=== PATIENT | female | born 1940 | race Caucasian/White ===

== ENCOUNTER 2019-06-24 09:41 | Emergency (ER) | payer MEDICARE, SELFPAY ==
[2019-06-24] VITALS (7 sets, daily range): BP systolic 135–165; BP diastolic 69–94; PULSE 60–61; RESP 14–28; TEMP 36.8; O2SAT 97–100
--- NOTE | ~2019-06-24 | XR_ITS ---
EXAMINATION: XR chest 2V DATE: 06/24/2019 10:18 INDICATION: Bilateral chest pain. TECHNIQUE: Frontal and lateral views of the chest were obtained. COMPARISON: Chest 2 views 02/25/2019, 12/30/2012 FINDINGS: There are interstitial opacities in the mid and lower lung zones, consistent with mild pulm onary edema. No pleural effusion or pneumothorax. Cardiomegaly is noted. There is a left chest pacer with single lead in right ventricle. There is an old healed fracture of left fifth rib. IMPRESSION: 1. Mild pulmonary edema. 2. Cardiomegaly. Reviewed, dictated and finalized at location A. RWAY TRAFFIC CHECKER
--- NOTE | 2019-06-24 09:45 | ED.CHESTPAIN ---
HPI - Chest Pain General Chief Complaint: Chest Pain Stated Complaint: chest pain Time Seen by Provider: 06/24/19 09:45 Source: patient Limitations: no limitations History of Present Illness HPI narrative: Patient arrives with complaint of chest pain. Seems to be more in her lower chest and in her upper abdomen. Says it hurts when she takes deep breath. Does have some pain goes up to her left shoulder. Happened during rest. She denies any other nausea vomiting diaphoresis. She has a history of pacemaker placement and coronary artery disease status post stent placement. 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 MD complaint: chest heaviness Pertinent past history: coronary artery disease Onset (ago): hour(s) (1) Timing of current episode: constant Prior episodes: Yes Onset: during rest Pain location: epigastric Pain radiation: left arm Severity: moderate (9) Quality: heaviness Relieving factors: nothing Exacerbating factors: nothing Treatment prior to arrival: none Risk Factors Coronary artery disease risk factors: hyperlipidemia and hypertension Related Data Home Medications Medication Instructions Recorded Confirmed albuterol sulfate 2 inh INHALATION Q4-6H PRN 06/24/19 06/24/19 aspirin 81 mg PO DAILY 06/24/19 06/24/19 atorvastatin 80 mg PO HS 06/24/19 06/24/19 carvedilol 6.25 mg PO DAILY 06/24/19 06/24/19 cholecalciferol (vitamin D3) 50 mcg PO DAILY 06/24/19 06/24/19 [Vitamin D3] ferrous sulfate [Slow Fe] 142 mg PO BID 06/24/19 06/24/19 fluocinonide 1 applic TOPICAL BID 06/24/19 06/24/19 fluticasone propion-salmeterol 1 puff INHALATION BID 06/24/19 06/24/19 losartan 100 mg PO DAILY 06/24/19 06/24/19 spironolactone 25 mg PO DAILY 06/24/19 06/24/19 vitamin E10-oixca acid 1 tablet PO DAILY 06/24/19 06/24/19 warfarin 5 mg PO 4XW 06/24/19 06/24/19 warfarin 7 mg PO QMWF 06/24/19 06/24/19 Allergies Allergy/AdvReac Type Severity Reaction Status Date / Time amlodipine Allergy Swelling Verified 06/24/19 10:15 benzonatate Allergy Dizziness Verified 06/24/19 10:15 Iodinated Contrast Media Allergy Hives Verified 06/24/19 10:15 Penicillins Allergy Unknown Verified 06/24/19 10:15 Sulfa (Sulfonamide Allergy Unknown Verified 06/24/19 10:15 Antibiotics) Review of Systems Constitutional: Constitutional: Denies chills and Denies fever(s) Eyes: Eyes: Reports no additional eye complaints ENT: Reports system reviewed and no additional complaints, except as documented Cardiovascular: Cardiovascular: Denies rapid heart rate Respiratory: Respiratory: Denies chest congestion, Denies cough, Denies dyspnea and Denies wheezing Gastrointestinal: Gastrointestinal: Denies nausea and Denies vomiting Musculoskeletal: Musculoskeletal: Reports no additional musculoskeletal complaints Endocrine: Endocrine: Reports no additional endocrine complaints Hematologic/Lymphatic: Hematologic/Lymphatic: Reports no additional hematologic/lymphatic complaints REPLACED BY [facility] Past Medical History Medical History (Updated 06/24/19 @ 13:22 by Sd Negron MD) Coronary artery disease Hyperlipemia Hypertension Pacemaker Surgical History Surgical History (Updated 06/24/19 @ 13:20 by Sd Negron MD) History of hysterectomy History of tonsillectomy Stented coronary artery Social History Social History (Updated 06/24/19 @ 13:23 by Sd Negron MD) Smoking status: Never smoker Alcohol intake: never Substance use: never Exam Const: General: no acute distress and alert Nutritional Appearance: well nourished Orientation/consciousness: patient oriented x3 HENMT: Head: normal to inspection Ears: external ears normal Face and sinus: normal facial exam Mouth: Yes moist mucous membranes Eyes: Conjunctivae: conjunctivae normal Pupils: Equal, round and reactive pupils present EOM: EOMs intact bilaterally Neck: Neck: normal visual inspection and no lymphadenopathy Chest: Chest palpation & inspection: normal insp
--- NOTE | 2019-06-24 09:53 | ECG_ITS ---
Measurements Intervals [place] Rate: 60 P: ND: 0 QRS: 107 QRSD: 174 T: -59 QT: 449 QTc: 449 Interpretive Statements ELECTRONIC VENTRICULAR PACEMAKER BASELINE ARTIFACT- I, II, III NO FURTHER INTERPRETATION IS POSSIBLE ATYPICAL ECG Electronically Signed On 06-24-2019 11:05:38 TESTER ROCKET ENGINE by Ghulam Douglas D.O.
[2019-06-24] MEDS: ASPIRIN 81 MG CHEWABLE TABLET 324 MG PO (09:57)
[2019-06-24 10:06] LABS: Basophils Absolute Auto 0.03 K/mm3 (0.00-0.10); Basophils Percent Auto 0.4 % (0.0-1.0); Hematocrit 28.5 % (35.0-42.0); Hemoglobin 9.3 g/dL (11.7-13.8); Immature Granulocyte Absolute 0.03 K/mm3 (0.00-0.00); Immature Granulocyte Percent A 0.4 % (0.0-0.0); Lymphocytes Absolute Auto 0.66 K/mm3 (1.10-4.50); Lymphocytes Percent Auto 9.9 % (18.0-42.0); Mean Corpuscular HGB Conc 32.6 g/dL (32.0-36.0); Mean Corpuscular Hemoglobin 29.4 pg (27.0-31.0); Mean Corpuscular Volume 90.2 fL (78.0-102.0); Mean Platelet Volume 9.1 fl (9.2-11.8); Monocytes Absolute Auto 0.51 K/mm3 (0.10-0.90); Monocytes Percent Auto 7.6 % (2.0-11.0); Neutrophils Absolute Auto 5.5 K/mm3 (1.7-7.2); Neutrophils Percent Auto 81.7 % (50.0-70.0); Platelet Count Result 146 K/mm3 (150-420); Red Blood Count 3.16 M/mm3 (4.20-5.40); Red Cell Distribution Width 12.9 % (11.6-14.4); White Blood Count 6.7 K/mm3 (4.8-10.8)
[2019-06-24 10:27] LABS: INR 3.1; Prothrombin Time 30.8 Seconds (9.64-11.0)
[2019-06-24 10:27] LABS: Alanine Aminotransferase 55 U/L (14-59); Albumin Level 3.5 g/dL (3.4-5.0); Alkaline Phosphatase 224 U/L (46-116); Anion Gap 12.4 mmol/L (7-16); Aspartate Amino Transferase 39 U/L (15-37); Bilirubin,Total 0.8 mg/dL (0.00-1.00); Blood Urea Nitrogen 22 mg/dL (7-18); Calcium 9.3 mg/dL (8.5-10.1); Carbon Dioxide 25 mmol/L (21-32); Chloride 100 mmol/L (98-108); Estimated CRCL calculation 33 ml/min; Estimated Glomerular Filt Rate 53; Glucose 117 mg/dL (70-99); Osmolality Calculated 280 mOsm/kg (285-295); Potassium 4.4 mmol/L (3.5-5.1); Sodium 133 mmol/L (136-145); Total Protein 6.9 g/dL (6.4-8.2)
[2019-06-24 10:30] LABS: D Dimer 0.53 mg/L (0.19-0.50)
[2019-06-24 10:40] LABS: Troponin I < 0.02 ng/mL (0.00-0.056)
[2019-06-24] MEDS: HYDROMORPHONE HCL 2 MG/ML VIAL 1 MG IV PUSH (10:41)
[2019-06-24] MEDS: NITROGLYCERIN SL 0.4 MG TABLET SUBLINGUAL (10:41)
--- NOTE | 2019-06-24 11:23 | PC.NURSE ---
Report to ALFREDO Nelson
--- NOTE | 2019-06-24 11:29 | PC.NURSE ---
Pt requesting [facility] for transport. [facility] contacted.
--- NOTE | 2019-06-24 12:13 | PC.NURSE ---
erp on phone with dr cosby at [facility] discussing plan of care.
--- NOTE | 2019-06-24 13:08 | PC.NURSE ---
room assignment obtained, pt to go to room 1306U at [facility].
--- NOTE | 2019-06-24 13:22 | PC.NURSE ---
RN unavailable to take report. Pt aware of room assignment.
--- NOTE | 2019-06-24 14:12 | PC.NURSE ---
Report to Dahiana at [facility]. [facility] has no als truck for transfer. [facility] contacted, will check and call back.
== END 2019-06-24 14:46 | disposition short-term general hospital (02) ==
PROVIDERS: Emergency Provider Emergency Medicine
DX: R07.1 Chest pain on breathing (principal); I25.10 Atherosclerotic heart disease of native coronary artery without angina pectoris; E78.5 Hyperlipidemia, unspecified; I10 Essential (primary) hypertension
CPT/HCPCS: 36415; 71046; 80053; 84484; 85025; 85380; 85610; 93005; 96374; 96375; 99284; 99285; A9270; J1170; J3010

== ENCOUNTER 2019-11-01 12:36 | Outpatient (RCR) | payer MEDICARE, SELFPAY ==
[2019-08-24 16:07] LABS: INR 3.1; Prothrombin Time 30.5 Seconds (9.64-11.0)
[2019-10-06 12:46] LABS: INR 3.6; Prothrombin Time 35.7 Seconds (9.64-11.0)
[2019-11-01 13:26] LABS: INR 3.4; Prothrombin Time 33.9 Seconds (9.64-11.0)
== END 2019-11-22 23:59 | disposition home or self-care (01) ==
LOC: CHSLAB 12:36
PROVIDERS: Internal Medicine; PCP Internal Medicine
DX: Z79.01 Long term (current) use of anticoagulants (principal); I48.20 Chronic atrial fibrillation, unspecified
CPT/HCPCS: 36415; 85610

== ENCOUNTER 2020-02-02 12:06 | Outpatient (RCR) | payer MEDICARE, SELFPAY ==
[2019-12-02 11:05] LABS: INR 3.2; Prothrombin Time 31.8 Seconds (9.64-11.0)
[2020-01-18 16:49] LABS: INR 4.1; Prothrombin Time 40.1 Seconds (9.64-11.0)
[2020-02-02 12:36] LABS: INR 2.4; Prothrombin Time 24.1 Seconds (9.64-11.0)
== END 2020-02-29 23:59 | disposition home or self-care (01) ==
LOC: CHSLAB 12:06
DX: Z79.01 Long term (current) use of anticoagulants (principal); I48.20 Chronic atrial fibrillation, unspecified
CPT/HCPCS: 36415; 85610

== ENCOUNTER 2020-05-12 14:21 | Outpatient (RCR) | payer MEDICARE, SELFPAY ==
[2020-03-03 16:05] LABS: Prothrombin Time 20.6 Seconds (9.64-11.0)
[2020-03-24 15:07] LABS: INR 3.6; Prothrombin Time 36.9 Seconds (9.50-12.10)
[2020-04-27 15:02] LABS: INR 2.4; Prothrombin Time 25.2 Seconds (9.50-12.10)
[2020-05-12 14:52] LABS: INR 2.6; Prothrombin Time 26.8 Seconds (9.50-12.10)
== END 2020-06-01 23:59 | disposition home or self-care (01) ==
LOC: CHSLAB 14:21
PROVIDERS: Internal Medicine; PCP Internal Medicine
DX: Z79.01 Long term (current) use of anticoagulants (principal); I48.20 Chronic atrial fibrillation, unspecified
CPT/HCPCS: 36415; 85610

== ENCOUNTER 2020-08-18 16:22 | Outpatient (RCR) | payer MEDICARE, SELFPAY ==
[2020-06-22 14:55] LABS: INR 4.2; Prothrombin Time 41.8 Seconds (9.50-12.10)
[2020-07-06 15:49] LABS: INR 2.6; Prothrombin Time 26.7 Seconds (9.50-12.10)
[2020-08-18 16:50] LABS: INR 3.4
== END 2020-09-20 23:59 | disposition home or self-care (01) ==
LOC: CHSLAB 16:22
PROVIDERS: PCP Internal Medicine
DX: Z79.01 Long term (current) use of anticoagulants (principal); I48.20 Chronic atrial fibrillation, unspecified
CPT/HCPCS: 36415; 85610

== ENCOUNTER 2020-10-02 12:20 | Outpatient (CLI) | payer MEDICARE, SELFPAY ==
[2020-10-02 12:55] LABS: Add Urine Microscopic? NO; Appearance Urine Clear (Clear); Basophils Absolute Auto 0.05 K/mm3 (0.00-0.10); Basophils Percent Auto 0.9 % (0.0-1.0); Bilirubin Urine Negative (Negative); Blood Urine Negative (Negative); Color Urine Light Yellow (Yellow); Eosinophils Absolute Auto 0.04 K/mm3 (0.02-0.50); Eosinophils Percent Auto 0.7 % (1.0-6.0); Glucose Urine UA Negative (Negative); Hemoglobin 9.2 g/dL (11.7-13.8); Immature Granulocyte Absolute 0.01 K/mm3 (0.00-0.00); Immature Granulocyte Percent A 0.2 % (0.0-0.0); Ketones Urine Negative (Negative); Leukocyte Esterase Ur Negative LEU/UL (Negative); Lymphocytes Percent Auto 13.6 % (18.0-42.0); Mean Corpuscular HGB Conc 31.7 g/dL (32.0-36.0); Mean Corpuscular Hemoglobin 29.6 pg (27.0-31.0); Mean Corpuscular Volume 93.2 fL (78.0-102.0); Mean Platelet Volume 9.3 fl (9.2-11.8); Monocytes Absolute Auto 0.47 K/mm3 (0.10-0.90); Neutrophils Absolute Auto 4.5 K/mm3 (1.7-7.2); Neutrophils Percent Auto 76.6 % (50.0-70.0); Nitrate Urine Negative (Negative); Platelet Count Result 132 K/mm3 (150-420); Protein Urine Negative (Negative); Red Blood Count 3.11 M/mm3 (4.20-5.40); Red Cell Distribution Width 14.4 % (11.6-14.4); Urobilinogen Urine 0.2 mg/dL (0.2-1.0); White Blood Count 5.9 K/mm3 (4.8-10.8); pH Urine 6.5 (5.0-8.0)
[2020-10-02 13:07] LABS: INR 3.6
[2020-10-02 13:14] LABS: Total Protein Urine Random 18.8 mg/dL (0.0-11.9)
[2020-10-02 14:10] LABS: Albumin Level 3.9 g/dL (3.4-5.0); Anion Gap 8 mmol/L (8-16); Blood Urea Nitrogen 33 mg/dL (7-18); Calcium 9.3 mg/dL (8.5-10.1); Carbon Dioxide 26 mmol/L (21-32); Chloride 105 mmol/L (98-108); Estimated Glomerular Filt Rate 38; Glucose 88 mg/dL (70-99); Osmolality Calculated 294 mOsm/kg (285-295); Phosphorus 4.4 mg/dL (2.6-4.7); Sodium 139 mmol/L (136-145)
[2020-10-03 13:09] LABS: Creatinine Urine 83.45 mg/dL (40-278)
[2020-10-04 11:37] LABS: Parathyroid Intact 75 pg/mL (14-64)
[2020-10-11 19:32] LABS: Vitamin D 25 Hydroxy 53 ng/mL (30-100)
== END 2020-10-02 12:21 | disposition home or self-care (01) ==
LOC: CHSLAB 12:30
PROVIDERS: PCP Internal Medicine; Referring Provider Internal Medicine; Visit Provider Internal Medicine Nephrology
DX: I12.9 Hypertensive chronic kidney disease with stage 1 through stage 4 chronic kidney disease, or unspecified chronic kidney disease (principal); N18.2 Chronic kidney disease, stage 2 (mild); D63.1 Anemia in chronic kidney disease; Z79.01 Long term (current) use of anticoagulants; E55.9 Vitamin D deficiency, unspecified
CPT/HCPCS: 36415; 80069; 81003; 81050; 82306; 82570; 83970; 84156; 85025; 85610

== ENCOUNTER 2020-12-10 13:56 | Emergency (ER) | payer MEDICARE, SELFPAY ==
[2020-12-10 14:15] VITALS: BP 130/59; PULSE 58; RESP 14; TEMP 36.6; O2SAT 98
[2020-12-10 14:30] LABS: Basophils Absolute Auto 0.03 K/mm3 (0.00-0.10); Basophils Percent Auto 0.5 % (0.0-1.0); Hematocrit 30.8 % (35.0-42.0); Hemoglobin 9.7 g/dL (11.7-13.8); Immature Granulocyte Absolute 0.02 K/mm3 (0.00-0.00); Immature Granulocyte Percent A 0.4 % (0.0-0.0); Lymphocytes Absolute Auto 0.62 K/mm3 (1.10-4.50); Mean Corpuscular HGB Conc 31.5 g/dL (32.0-36.0); Mean Corpuscular Hemoglobin 29.8 pg (27.0-31.0); Mean Corpuscular Volume 94.5 fL (78.0-102.0); Mean Platelet Volume 9.4 fl (9.2-11.8); Monocytes Absolute Auto 0.38 K/mm3 (0.10-0.90); Monocytes Percent Auto 6.7 % (2.0-11.0); Neutrophils Absolute Auto 4.6 K/mm3 (1.7-7.2); Neutrophils Percent Auto 81.4 % (50.0-70.0); Platelet Count Result 122 K/mm3 (150-420); Red Blood Count 3.26 M/mm3 (4.20-5.40); Red Cell Distribution Width 13.2 % (11.6-14.4); White Blood Count 5.6 K/mm3 (4.8-10.8)
[2020-12-10 14:32] LABS: Add Urine Microscopic? YES; Appearance Urine Cloudy (Clear); Bilirubin Urine 1+ (Negative); Blood Urine 3+ (Negative); Color Urine Brown (Yellow); Glucose Urine UA Negative (Negative); Ketones Urine Trace (Negative); Leukocyte Esterase Ur 2+ (Negative); Nitrate Urine Positive (Negative); Protein Urine 3+ (Negative)
[2020-12-10 14:42] LABS: Bacteria Urine 2+ /hpf; RBC Urine >75 /hpf (0-2); Squamous Epithelial Cell Urine None seen /hpf (Few); WBC Urine >75 /hpf (0-3)
[2020-12-10 14:45] LABS: INR 2.2; Partial Thromboplastin Time 35.9 SEC (23.90-30.70); Prothrombin Time 22.5 Seconds (9.50-12.10)
--- NOTE | 2020-12-10 15:16 | ED.ABDPAIN ---
HPI - Abdominal Pain General Chief Complaint: Urogenital-Female Stated Complaint: UTI Time Seen by Provider: 12/10/20 13:58 Source: patient and RN notes reviewed Mode of arrival: ambulatory Limitations: no limitations History of Present Illness MD elicited complaint: other (dysuria and hematuria. no acute abdominal pain.) Pertinent past history: past UTI Onset (ago): hour(s) (8) Pain scale (0-10): 0 Associated symptoms: dysuria and hematuria Related Data Home Medications Medication Instructions Recorded Confirmed albuterol sulfate 2 puff INHALATION QID PRN 12/10/20 12/10/20 aspirin [Adult Aspirin EC Low 81 mg PO DAILY 12/10/20 12/10/20 Strength] atorvastatin 80 mg PO HS 12/10/20 12/10/20 carvedilol 6.25 mg PO DAILY 12/10/20 12/10/20 cholecalciferol (vitamin D3) 50 mcg PO DAILY 12/10/20 12/10/20 escitalopram oxalate 10 mg PO DAILY 12/10/20 12/10/20 ferrous sulfate [Slow Fe] 142 mg PO BID 12/10/20 12/10/20 fluocinonide 1 applic TOPICAL BID 12/10/20 12/10/20 losartan 100 mg PO DAILY 12/10/20 12/10/20 spironolactone 25 mg PO DAILY 12/10/20 12/10/20 warfarin 5 mg PO QTUTHSASU 12/10/20 12/10/20 warfarin 7.5 mg PO QMWF 12/10/20 12/10/20 Allergies Allergy/AdvReac Type Severity Reaction Status Date / Time amlodipine Allergy Unknown Verified 12/10/20 14:27 benzonatate Allergy Unknown Verified 12/10/20 14:27 Penicillins Allergy Unknown Verified 12/10/20 14:14 Sulfa (Sulfonamide Allergy Unknown Verified 12/10/20 14:14 Antibiotics) Review of Systems Review of Systems: All systems reviewed & are unremarkable except as noted in HPI and below PMFSH Past Medical History Medical History Arrhythmia Exam Const: General: no acute distress and alert Orientation/consciousness: patient oriented x3 HENMT: Head: normal to inspection Ears: external ears normal and TM's normal bilaterally General nose exam: Normal external nose present and Normal nares present Mouth: Yes lip normal and Yes moist mucous membranes Teeth and gingiva: dentition normal Eyes: Conjunctivae: conjunctivae normal Pupils: Equal, round and reactive pupils present Neck: Neck: normal visual inspection Chest: Chest palpation & inspection: normal inspection of the chest Resp: Effort & Inspection: normal respiratory effort Auscultation: clear to auscultation bilaterally Cardio: Rate: regular rate Rhythm: regular rhythm GI: GI Palp: Yes Soft to palpation Percussion: Yes normal to percussion Auscultation: normal bowel sounds : General: Yes bladder normal to palpation and Yes no CVA tenderness Back/Spine/Pelvis: Back: no CVA tenderness Skin: General skin exam: normal color Neuro: General: patient oriented x3, moves all extremities, no focal motor deficits and CN's II-XI intact bilaterally Extrem: General: normal to inspection and no pedal edema Psych: Appearance: grossly normal and well kempt Mental Status: mental status grossly normal Affect: normal affect Attitude: cooperative Thought content: Yes Normal thought content present Course Course Emergency Course: Pt was stable in the ED. no acute blood loss. Reevaluation(s) Date: 12/10/20 Time: 14:02 Vital Signs Vital signs: Vital Signs Temperature 36.6 C 12/10/20 14:15 Pulse Rate 58 L 12/10/20 14:15 Respiratory Rate 14 12/10/20 14:15 Blood Pressure 130/59 L 12/10/20 14:15 Pulse Oximetry 98 12/10/20 14:15 Temperature 36.6 C 12/10/20 14:15 Pulse Rate 58 L 12/10/20 14:15 Respiratory Rate 14 12/10/20 14:15 Blood Pressure 130/59 L 12/10/20 14:15 Pulse Oximetry 98 12/10/20 14:15 MDM - Abdominal Pain Differential Diagnosis Differential diagnosis: Likely other (dysuria and hematuria) Medical Records Attestation: I reviewed the patient's medical records. Lab Data Attestation: I reviewed the patient's lab results. Result diagrams: 12/10/20 14:27 Labs: Lab Results 0
[2020-12-10] MEDS: cefTRIAXone 1 GM VIAL IM (15:29)
== END 2020-12-10 15:47 | disposition home or self-care (01) ==
PROVIDERS: Emergency Provider Emergency Medicine; PCP Internal Medicine
DX: N39.0 Urinary tract infection, site not specified (principal); Z79.01 Long term (current) use of anticoagulants; I49.9 Cardiac arrhythmia, unspecified
CPT/HCPCS: 36415; 81001; 85025; 85610; 85730; 96372; 99283; J0696

== ENCOUNTER 2021-01-02 13:35 | Outpatient (CLI) | payer MEDICARE, SELFPAY ==
[2021-01-02 14:02] LABS: Appearance Urine Clear (Clear); Bilirubin Urine Negative (Negative); Color Urine Light Yellow (Yellow); Glucose Urine UA Negative (Negative); Ketones Urine Negative (Negative); Leukocyte Esterase Ur Trace LEU/UL (Negative); Nitrate Urine Negative (Negative); Protein Urine Negative (Negative); Urobilinogen Urine 0.2 mg/dL (0.2-1.0); pH Urine 5.5 (5.0-8.0)
[2021-01-02 14:06] LABS: Prothrombin Time 20.6 Seconds (9.50-12.10)
[2021-01-02 14:08] LABS: Add Urine Microscopic? YES; Bacteria Urine Trace /hpf; Blood Urine Trace-Intact (Negative); RBC Urine None seen /hpf (0-2); Squamous Epithelial Cell Urine Rare /hpf (Few); WBC Urine None seen /hpf (0-3)
== END 2021-01-02 13:36 | disposition home or self-care (01) ==
LOC: CHSLAB 13:40
PROVIDERS: PCP Internal Medicine
DX: I48.20 Chronic atrial fibrillation, unspecified (principal)
CPT/HCPCS: 36415; 81001; 85610

== ENCOUNTER 2021-01-18 15:27 | Outpatient (RCR) | payer MEDICARE, SELFPAY ==
[2020-11-01 15:26] LABS: Prothrombin Time 39.6 Seconds (9.50-12.10)
[2020-11-24 16:07] LABS: INR 2.4; Prothrombin Time 24.7 Seconds (9.50-12.10)
[2020-12-07 17:55] LABS: INR 2.8; Prothrombin Time 28.3 Seconds (9.50-12.10)
[2021-01-18 15:48] LABS: INR 2.9; Prothrombin Time 29.2 Seconds (9.50-12.10)
== END 2021-01-30 23:59 | disposition home or self-care (01) ==
LOC: CHSLAB 15:27
PROVIDERS: Internal Medicine; PCP Internal Medicine
DX: I48.20 Chronic atrial fibrillation, unspecified (principal)
CPT/HCPCS: 36415; 85610

== ENCOUNTER 2021-05-09 15:14 | Outpatient (RCR) | payer MEDICARE, SELFPAY ==
[2021-02-28 10:19] LABS: INR 1.2; Prothrombin Time 12.2 Seconds (9.50-12.10)
[2021-03-21 16:45] LABS: Prothrombin Time 30.2 Seconds (9.50-12.10)
[2021-05-09 15:44] LABS: INR 2.7; Prothrombin Time 27.2 Seconds (9.50-12.10)
== END 2021-05-29 23:59 | disposition home or self-care (01) ==
LOC: CHSLAB 15:14
PROVIDERS: PCP Internal Medicine
DX: I48.20 Chronic atrial fibrillation, unspecified (principal)
CPT/HCPCS: 36415; 85610

== ENCOUNTER 2021-05-15 10:25 | Outpatient (CLI) | payer MEDICARE, SELFPAY ==
[2021-05-15 11:07] LABS: Basophils Absolute Auto 0.04 K/mm3 (0.00-0.10); Basophils Percent Auto 0.8 % (0.0-1.0); Eosinophils Absolute Auto 0.06 K/mm3 (0.02-0.50); Eosinophils Percent Auto 1.3 % (1.0-6.0); Hematocrit 32.2 % (35.0-42.0); Immature Granulocyte Absolute 0.02 K/mm3 (0.00-0.00); Immature Granulocyte Percent A 0.4 % (0.0-0.0); Lymphocytes Absolute Auto 0.64 K/mm3 (1.10-4.50); Lymphocytes Percent Auto 13.5 % (18.0-42.0); Mean Corpuscular HGB Conc 31.1 g/dL (32.0-36.0); Mean Corpuscular Hemoglobin 29.8 pg (27.0-31.0); Mean Corpuscular Volume 95.8 fL (78.0-102.0); Mean Platelet Volume 9.9 fl (9.2-11.8); Monocytes Absolute Auto 0.33 K/mm3 (0.10-0.90); Monocytes Percent Auto 6.9 % (2.0-11.0); Neutrophils Absolute Auto 3.7 K/mm3 (1.7-7.2); Neutrophils Percent Auto 77.1 % (50.0-70.0); Platelet Count Result 108 K/mm3 (150-420); Red Blood Count 3.36 M/mm3 (4.20-5.40); White Blood Count 4.8 K/mm3 (4.8-10.8)
[2021-05-15 11:10] LABS: Appearance Urine Clear (Clear); Bilirubin Urine Negative (Negative); Color Urine Light Yellow (Yellow); Glucose Urine UA Negative (Negative); Ketones Urine Negative (Negative); Leukocyte Esterase Ur Negative LEU/UL (Negative); Nitrate Urine Negative (Negative); Protein Urine Negative (Negative); Specific Grav Ur 1.015 (1.010-1.020); Urobilinogen Urine 0.2 mg/dL (0.2-1.0); pH Urine 5.5 (5.0-8.0)
[2021-05-15 11:21] LABS: Creatinine Urine 30.88 mg/dL (40-278); Ur Ttl Prot Creatinine Ratio 0.19 mg/mg (0-0.20)
[2021-05-15 11:27] LABS: Add Urine Microscopic? YES; Bacteria Urine None seen /hpf; Blood Urine Trace-Intact (Negative); RBC Urine None seen /hpf (0-2); Squamous Epithelial Cell Urine Rare /hpf (Few); WBC Urine None seen /hpf (0-3)
[2021-05-15 11:28] LABS: Total Protein Urine Random < 6.0 mg/dL (0.0-11.9)
[2021-05-15 12:18] LABS: Alanine Aminotransferase 33 U/L (14-59); Albumin Level 3.9 g/dL (3.4-5.0); Alkaline Phosphatase 99 U/L (46-116); Anion Gap 7 mmol/L (8-16); Aspartate Amino Transferase 36 U/L (15-37); Bilirubin,Total 0.7 mg/dL (0.00-1.00); Blood Urea Nitrogen 31 mg/dL (7-18); Calcium 9.1 mg/dL (8.5-10.1); Carbon Dioxide 28 mmol/L (21-32); Chloride 102 mmol/L (98-108); Estimated Glomerular Filt Rate 47; Ferritin 95 ng/mL (8-252); Folic Acid 10.5 ng/mL (8.6->20); Glucose 88 mg/dL (70-99); Iron 68 ug/dL (50-170); Osmolality Calculated 289 mOsm/kg (285-295); Percent Iron Saturation 20 % (12-57); Phosphorus 4.3 mg/dL (2.6-4.7); Potassium 4.8 mmol/L (3.5-5.1); Sodium 137 mmol/L (136-145); Total Protein 6.5 g/dL (6.4-8.2); Vitamin B12 1604 pg/mL (193-986)
[2021-05-17 13:28] LABS: Parathyroid Intact 44 pg/mL (14-64)
[2021-05-21 20:02] LABS: Vitamin D 25 Hydroxy 52 ng/mL (30-100)
== END 2021-05-15 10:26 | disposition home or self-care (01) ==
LOC: CHSLAB 10:29
PROVIDERS: PCP Internal Medicine; Visit Provider Internal Medicine Nephrology
DX: D64.9 Anemia, unspecified (principal); I12.9 Hypertensive chronic kidney disease with stage 1 through stage 4 chronic kidney disease, or unspecified chronic kidney disease; N18.30 Chronic kidney disease, stage 3 unspecified; N25.81 Secondary hyperparathyroidism of renal origin
CPT/HCPCS: 36415; 80053; 81001; 82306; 82570; 82607; 82728; 82746; 83540; 83550; 83970; 84100; 84156; 85025

== ENCOUNTER 2021-08-08 14:54 | Outpatient (RCR) | payer MEDICARE, SELFPAY ==
[2021-06-19 16:48] LABS: INR 2.6; Prothrombin Time 26.6 Seconds (9.50-12.10)
[2021-08-08 15:16] LABS: INR 2.6; Prothrombin Time 26.6 Seconds (9.50-12.10)
== END 2021-09-17 23:59 | disposition home or self-care (01) ==
LOC: CHSLAB 14:54
PROVIDERS: Internal Medicine; PCP Internal Medicine
DX: I48.20 Chronic atrial fibrillation, unspecified (principal)
CPT/HCPCS: 36415; 85610

== ENCOUNTER 2021-10-24 14:02 | Outpatient (CLI) | payer MEDICARE, SELFPAY ==
[2021-10-26 12:32] LABS: NIL 0.03 IU/mL; Quantiferon TB Plus, 1T NEGATIVE (NEGATIVE); TB1-NIL <0.00 IU/mL; TB2-NIL <0.00 IU/mL
== END 2021-10-24 14:03 | disposition home or self-care (01) ==
LOC: CHSLAB 14:05
PROVIDERS: PCP Internal Medicine; Visit Provider Internal Medicine
DX: Z20.1 Contact with and (suspected) exposure to tuberculosis (principal)
CPT/HCPCS: 36415; 86480

== ENCOUNTER 2022-02-01 11:00 | Outpatient (RCR) | payer MEDICARE, SELFPAY | END 2022-02-01 16:05 | disposition home or self-care (01) | PROVIDERS: PCP Internal Medicine | DX: Z95.2 Presence of prosthetic heart valve (principal) | CPT/HCPCS: 93668; 93798 ==

== ENCOUNTER 2022-03-04 10:55 | Outpatient (CLI) | payer MEDICARE, SELFPAY ==
[2022-03-04 11:17] LABS: Basophils Absolute Auto 0.03 K/mm3 (0.00-0.10); Basophils Percent Auto 0.6 % (0.0-1.0); Eosinophils Absolute Auto 0.01 K/mm3 (0.02-0.50); Eosinophils Percent Auto 0.2 % (1.0-6.0); Hematocrit 33.6 % (35.0-42.0); Hemoglobin 10.9 g/dL (11.7-13.8); Immature Granulocyte Absolute 0.01 K/mm3 (0.00-0.00); Immature Granulocyte Percent A 0.2 % (0.0-0.0); Lymphocytes Absolute Auto 0.61 K/mm3 (1.10-4.50); Lymphocytes Percent Auto 11.6 % (18.0-42.0); Mean Corpuscular HGB Conc 32.4 g/dL (32.0-36.0); Mean Corpuscular Hemoglobin 31.1 pg (27.0-31.0); Mean Platelet Volume 9.4 fl (9.2-11.8); Monocytes Absolute Auto 0.38 K/mm3 (0.10-0.90); Monocytes Percent Auto 7.2 % (2.0-11.0); Neutrophils Absolute Auto 4.2 K/mm3 (1.7-7.2); Neutrophils Percent Auto 80.2 % (50.0-70.0); Platelet Count Result 118 K/mm3 (150-420); Red Cell Distribution Width 12.7 % (11.6-14.4); White Blood Count 5.3 K/mm3 (4.8-10.8)
[2022-03-04 11:31] LABS: Appearance Urine Clear (Clear); Bilirubin Urine Negative (Negative); Blood Urine 1+ (Negative); Creatinine Urine 60.53 mg/dL (40-278); Glucose Urine UA Negative (Negative); Ketones Urine Negative (Negative); Leukocyte Esterase Ur Trace LEU/UL (Negative); Nitrate Urine Negative (Negative); Protein Urine Negative (Negative); Specific Grav Ur 1.015 (1.010-1.020); Total Protein Urine Random 9.3 mg/dL (0.0-11.9); Ur Ttl Prot Creatinine Ratio 0.15 mg/mg (0-0.20); Urobilinogen Urine 0.2 mg/dL (0.2-1.0)
[2022-03-04 11:49] LABS: Add Urine Microscopic? YES; Color Urine Light Yellow (Yellow)
[2022-03-04 11:50] LABS: Bacteria Urine Trace /hpf; Squamous Epithelial Cell Urine Rare /hpf (Few); WBC Urine 0-3 /hpf (0-3)
[2022-03-04 12:14] LABS: Alanine Aminotransferase 31 U/L (14-59); Albumin Level 3.9 g/dL (3.4-5.0); Alkaline Phosphatase 73 U/L (46-116); Anion Gap 6 mmol/L (8-16); Aspartate Amino Transferase 27 U/L (15-37); Bilirubin,Total 0.8 mg/dL (0.00-1.00); Blood Urea Nitrogen 33 mg/dL (7-18); Calcium 9.1 mg/dL (8.5-10.1); Carbon Dioxide 30 mmol/L (21-32); Chloride 104 mmol/L (98-108); Estimated Glomerular Filt Rate 48; Ferritin 96 ng/mL (8-252); Folic Acid 16.2 ng/mL (8.6->20); Glucose 111 mg/dL (70-99); Iron 75 ug/dL (50-170); Osmolality Calculated 298 mOsm/kg (285-295); Percent Iron Saturation 24 % (12-57); Phosphorus 4.1 mg/dL (2.6-4.7); Potassium 4.1 mmol/L (3.5-5.1); Sodium 140 mmol/L (136-145); Total Protein 6.8 g/dL (6.4-8.2); Vitamin B12 1838 pg/mL (193-986)
[2022-03-06 20:56] LABS: Vitamin D 25 Hydroxy 59 ng/mL (30-100)
[2022-03-07 21:03] LABS: Parathyroid Intact 46 pg/mL (14-64)
== END 2022-03-04 10:56 | disposition home or self-care (01) ==
LOC: CHSLAB 10:57
PROVIDERS: PCP Internal Medicine; Visit Provider Internal Medicine Nephrology
DX: D64.9 Anemia, unspecified (principal); N25.81 Secondary hyperparathyroidism of renal origin; I12.9 Hypertensive chronic kidney disease with stage 1 through stage 4 chronic kidney disease, or unspecified chronic kidney disease; N18.30 Chronic kidney disease, stage 3 unspecified
CPT/HCPCS: 36415; 80053; 81001; 82306; 82570; 82607; 82728; 82746; 83540; 83550; 83970; 84100; 84156; 85025

== ENCOUNTER 2022-03-20 12:11 | Outpatient (CLI) | payer MEDICARE, SELFPAY ==
--- NOTE | ~2022-03-20 | DEXA_ITS ---
Bone Density Report Name: ELAINE IBARRA Age: 81 Sex: Female Ethnicity: White Date of : 1940 Indication: postmenopausal; screening for osteoporosis; height loss; asthma or emphysema; hysterectomy; Referring Provider: KARYN, HOLLEY Murray Study: Bone densitometry was performed. Exam Date: March 20, 2022 Accession number: [id number] Bone Density: Region BMD T-score Z-score Classification AP Spine(L1, L2, L3) 1.461 4.0 6.6 Normal Femoral Neck (Left) 0.751 -0.9 1.4 Normal Total Hip (Left) 0.968 0.2 2.2 Normal Femoral Neck (Right) 0.704 -1.3 1.0 Osteopenia Total Hip (Right) 0.936 0.0 2.0 Normal Femoral Neck Mean 0.727 -1.1 1.2 Osteopenia Total Hip Mean 0.952 0.1 2.1 Normal World Health Organization criteria for BMD impression classify patients as: Normal (T-score at or above -1.0), Osteopenia (T-score between -1.0 and -2.5), or Osteoporosis (T-score at or below -2.5). 10-year Fracture Risk(1): Major Osteoporotic Fracture 12% Hip Fracture 2.7% Reported Risk Factors: [place] (), Neck BMD=0.704, BMI=23.6 (1) FRAX(R) Version 3.08. Fracture probability calculated for an untreated patient. Fracture probability may be lower if the patient has received treatment. Clinical Information Provided by Patient: Has used the following medications: Vitamin D Has the following medical conditions: Asthma or Emphysema, Hysterectomy Patient maximum height was 64 Menopause Age: 32 No regular weight bearing exercise Does not regularly consume dairy products Onset of menses at age 14 Number of children 4 Impression: The patient has low bone mass, based on the Right Femoral Neck T-score. Discussion: BONE DENSITY IS LOW AT ONE OR MORE SKELETAL SITES. This patient's lowest T-score is low at one or more skeletal sites. It meets the World Health Organization's (WHO) criteria for ?low bone mass? (T-score between -1.0 and -2.5). The patient's 10-year risk of fracture as calculated by FRAX is less than the threshold where pharmacological therapy is recommended by the National Osteoporosis Foundation (NOF). However, all treatment decisions require clinical judgment and consideration of individual patient factors, including patient preferences, comorbidities, previous drug use, risk factors not captured in the FRAX model (e.g., frailty, falls, vitamin D deficiency, increased bone turnover, interval significant decline in bone density) and possible under or overestimation of fracture risk by FRAX. The patient should follow a healthful lifestyle (good nutrition with adequate calcium and vitamin D, and appropriate weight-bearing exercise). Follow-Up: Consider repeating this study in 2 to 3 years to reassess this patient's status, or sooner if there is some new clinical
--- NOTE | ~2022-03-20 | MM_ITS ---
EXAMINATION: MM screening tom BI w aracelis HISTORY: Screening mammogram TECHNIQUE: Craniocaudal and mediolateral oblique 3-D tomosynthesis images were obtained and synthetic 2-D images were generated. CAD analysis was submitted and interpreted. COMPARISON: No prior mammogram is available for comparison at this institution. BREAST PARENCHYMAL COMPOSITION: The breasts are heterogeneously dense, which may obscure small masses . FINDINGS: Scattered benign-appearing calcifications are present. No suspicious mass, calcification, o r architectural distortion are identified in either breast to suggest malignancy. IMPRESSION: 1. No mammographic evidence of malignancy. 2. Recommend routine screening mammography in one year. BI-RADS Category 2: Benign finding(s). Reviewed, dictated and finalized at location A. F ENGINEER DRILLING AND RECOVERY
== END 2022-03-20 12:12 | disposition home or self-care (01) ==
LOC: CHSIMG 12:15
PROVIDERS: PCP Internal Medicine
DX: Z78.0 Asymptomatic menopausal state (principal); Z12.31 Encounter for screening mammogram for malignant neoplasm of breast
CPT/HCPCS: 77063; 77067; 77080

== ENCOUNTER 2022-04-24 12:49 | Emergency (ER) | payer MEDICARE, SELFPAY ==
--- NOTE | ~2022-04-24 | CT_ITS ---
EXAMINATION: CT brain wo con DATE: 04/24/2022 13:36 INDICATION: Expressive aphasia TECHNIQUE: Computed tomography (CT) of the head was performed without intravenous contrast. The mA wa s adjusted according to patient size. Iterative reconstruction technique was employed. Exam dose: 60 5.33 mGy-cm total exam DLP. COMPARISON: 10/2015 CT brain FINDINGS: Bilateral carotid siphon internal carotid artery calcifications. There is nonspecific dimin ished attenuation of the cerebral white matter, likely due to chronic small vessel ischemic changes. No intracranial mass lesion or hemorrhage, midline shift or mass effect. Moderate cerebral volume los s. No subdural or epidural hematoma. No fracture or bone destruction of the cranial vault. Bilateral hyperostosis frontalis interna, not l ikely of any clinical significance. Included paranasal sinuses and mastoid air cells are well aerated . IMPRESSION: Cerebral atherosclerosis and chronic small vessel ischemic changes of the cerebral white matter No acute intracranial finding or hemorrhage; CT is not sensitive for detection of hyperacute nonhemor rhagic CVA Reviewed, dictated and finalized at Location A. Reviewed, dictated and finalized at location B. AL SUPPORT EMPLOYEE IMPRESSION: Cerebral atherosclerosis and chronic small vessel ischemic changes of the cerebral white matter No acute intracranial finding or hemorrhage; CT is not sensitive for detection of hyperacute nonhemorrhagic CVA
--- NOTE | 2022-04-24 13:11 | ED.NEUROSD ---
HPI - Neuro Symptoms/Deficit General Chief Complaint: Neuro Symptoms/Deficit Stated Complaint: LOSS OF WORDS/MUMBLED SPEECH Time Seen by Provider: 04/24/22 13:06 Source: patient Mode of arrival: ambulatory Limitations: no limitations History of Present Illness HPI Narrative: 81 year old female presents to the Emergency Department complaining of difficulty speaking. Onset around 930 today. Lasted approximately 10 minutes and resolved. States she was just able to mumble words. Denies any other symptoms. No muscle weakness, numbness, tingling, facial asymmetry or cognition deficits. No prior history of. Patient has a history of atrial fibrillation. She takes Eliquis, and has not missed any dosage. Denies chest pain, shortness of breath, palpitations or other problems. States she feels 100% normal now. Onset (ago): hour(s) (4) Time: 09:30 Timing confirmed by: family member Location: speech History of same: No Severity: moderate Relieving factors: time Exacerbating factors: none Context: sudden onset On Anticoagulants: Yes Associated symptoms: denies other symptoms Treatments Prior to Arrival: none, Aspirin (home medication) and other medication (eliquis home medication) Related Data Home Medications Medication Instructions Recorded Confirmed albuterol sulfate 90 mcg/actuation 2 inh inhalation Q4-6H PRN 06/24/19 06/24/19 breath activated powder inhaler Shortness Of Breath aspirin 81 mg chewable tablet 81 mg PO DAILY 06/24/19 06/24/19 atorvastatin 80 mg tablet 80 mg PO HS 06/24/19 06/24/19 carvedilol 6.25 mg tablet 6.25 mg PO DAILY 06/24/19 06/24/19 cholecalciferol (vitamin D3) 50 50 mcg PO DAILY 06/24/19 06/24/19 mcg (2,000 unit) tablet (Vitamin D3) ferrous sulfate 142 mg (45 mg 142 mg PO BID 06/24/19 06/24/19 iron) tablet,extended release (Slow Fe) fluocinonide 0.05 % topical cream 1 applic topical BID 06/24/19 06/24/19 fluticasone 113 mcg-salmeterol 14 1 puff inhalation BID 06/24/19 06/24/19 mcg/actuation breath activated powdr losartan 100 mg tablet 100 mg PO DAILY 06/24/19 06/24/19 spironolactone 25 mg tablet 25 mg PO DAILY 06/24/19 06/24/19 vitamin B12 500 mcg-folic acid 400 1 tablet PO DAILY 06/24/19 06/24/19 mcg tablet warfarin 5 mg tablet 5 mg PO 4XW 06/24/19 06/24/19 warfarin 5 mg tablet 7 mg PO QMWF 06/24/19 06/24/19 albuterol sulfate 90 mcg/actuation 2 puff inhalation QID PRN Wheezing 12/10/20 12/10/20 aerosol inhaler aspirin 81 mg tablet,delayed 81 mg PO DAILY 12/10/20 12/10/20 release atorvastatin 80 mg tablet 80 mg PO HS 12/10/20 12/10/20 carvedilol 6.25 mg tablet 6.25 mg PO DAILY 12/10/20 12/10/20 cholecalciferol (vitamin D3) 50 50 mcg PO DAILY 12/10/20 12/10/20 mcg (2,000 unit) capsule escitalopram oxalate 10 mg tablet 10 mg PO DAILY 12/10/20 12/10/20 ferrous sulfate 142 mg (45 mg 142 mg PO BID 12/10/20 12/10/20 iron) tablet,extended release (Slow Fe) fluocinonide 0.05 % topical cream 1 applic topical BID 12/10/20 12/10/20 losartan 100 mg tablet 100 mg PO DAILY 12/10/20 12/10/20 spironolactone 25 mg tablet 25 mg PO DAILY 12/10/20 12/10/20 warfarin 5 mg tablet 5 mg PO QTUTHSASU 12/10/20 12/10/20 warfarin 5 mg tablet 7.5 mg PO QMWF 12/10/20 12/10/20 Allergies Allergy/AdvReac Type Severity Reaction Status Date / Time amlodipine Allergy Unknown Verified 01/14/22 15:45 benzonatate Allergy Unknown Verified 01/14/22 15:45 Iodinated Contrast Media Allergy Hives Verified 01/14/22 15:45 Penicillins Allergy Unknown Verified 01/14/22 15:45 Sulfa (Sulfonamide Allergy Unknown Verified 01/14/22 15:45 Antibiotics) Review of Systems Review of Systems: All systems reviewed & are unremarkable except as noted in HPI and below Constitutional: Constitutional: Reports as per HPI, Reports no additional constitutional complaints, Denies chills, Denies fatigue, Denies fever(s) and Denies weakness Eyes: Eyes: Reports as per HPI, Reports no additional eye complaints and Denies change
--- NOTE | 2022-04-24 13:12 | ECG_ITS ---
Measurements Intervals [place] Rate: 61 P: VT: 0 QRS: 110 QRSD: 160 T: -51 QT: 449 QTc: 455 Interpretive Statements ELECTRONIC VENTRICULAR PACEMAKER NO FURTHER INTERPRETATION IS POSSIBLE ATYPICAL ECG NO PREVIOUS ECG AVAILABLE FOR COMPARISON Electronically Signed On 04-24-2022 13:34:37 EMPLOYEE ADVISER by Ghulam Douglas D.O.
[2022-04-24 13:41] VITALS: BP 155/86; PULSE 80; RESP 20; TEMP 36.3; O2SAT 97
[2022-04-24 13:47] LABS: Glucose Point of Care 88 mg/dl (65-105)
[2022-04-24 13:50] LABS: Basophils Absolute Auto 0.03 K/mm3 (0.00-0.10); Basophils Percent Auto 0.5 % (0.0-1.0); Hemoglobin 10.3 g/dL (11.7-13.8); Immature Granulocyte Absolute 0.01 K/mm3 (0.00-0.00); Immature Granulocyte Percent A 0.2 % (0.0-0.0); Lymphocytes Absolute Auto 0.69 K/mm3 (1.10-4.50); Lymphocytes Percent Auto 12.3 % (18.0-42.0); Mean Corpuscular HGB Conc 33.2 g/dL (32.0-36.0); Mean Corpuscular Hemoglobin 30.8 pg (27.0-31.0); Mean Corpuscular Volume 92.8 fL (78.0-102.0); Mean Platelet Volume 8.9 fl (9.2-11.8); Monocytes Absolute Auto 0.41 K/mm3 (0.10-0.90); Monocytes Percent Auto 7.3 % (2.0-11.0); Neutrophils Absolute Auto 4.5 K/mm3 (1.7-7.2); Neutrophils Percent Auto 79.7 % (50.0-70.0); Platelet Count Result 129 K/mm3 (150-420); Red Blood Count 3.34 M/mm3 (4.20-5.40); Red Cell Distribution Width 12.2 % (11.6-14.4); White Blood Count 5.6 K/mm3 (4.8-10.8)
[2022-04-24 13:58] LABS: Add Urine Microscopic? YES; Appearance Urine Clear (Clear); Bilirubin Urine Negative (Negative); Blood Urine 2+ (Negative); Color Urine Light Yellow (Yellow); Glucose Urine UA Negative (Negative); Ketones Urine Negative (Negative); Leukocyte Esterase Ur Negative LEU/UL (Negative); Nitrate Urine Negative (Negative); Protein Urine Negative (Negative); Specific Grav Ur <= 1.005 (1.010-1.020); Urobilinogen Urine 0.2 mg/dL (0.2-1.0); pH Urine 6.5 (5.0-8.0)
[2022-04-24 14:05] LABS: Bacteria Urine None seen /hpf; Squamous Epithelial Cell Urine Rare /hpf (Few); WBC Urine None seen /hpf (0-3)
[2022-04-24 14:06] VITALS: PULSE 60
[2022-04-24 14:07] LABS: INR 1.1; Prothrombin Time 12.1 Seconds (9.50-12.10)
[2022-04-24 14:08] LABS: Alanine Aminotransferase 33 U/L (14-59); Albumin Level 3.6 g/dL (3.4-5.0); Alkaline Phosphatase 68 U/L (46-116); Anion Gap 3 mmol/L (8-16); Aspartate Amino Transferase 31 U/L (15-37); Bilirubin,Total 0.6 mg/dL (0.00-1.00); Blood Urea Nitrogen 21 mg/dL (7-18); Calcium 8.9 mg/dL (8.5-10.1); Carbon Dioxide 30 mmol/L (21-32); Chloride 101 mmol/L (98-108); Estimated CRCL calculation 39 ml/min; Estimated Glomerular Filt Rate 58; Glucose 105 mg/dL (70-99); Osmolality Calculated 281 mOsm/kg (285-295); Potassium 4.1 mmol/L (3.5-5.1); Sodium 134 mmol/L (136-145); Total Protein 6.6 g/dL (6.4-8.2); Troponin I 17.6 ng/L (0.00-60.4)
[2022-04-24 15:00] VITALS: BP 153/71; PULSE 64; RESP 16; O2SAT 97
[2022-04-24 15:19] VITALS: BP 153/71; PULSE 63; RESP 20; TEMP 36.9; O2SAT 98
== END 2022-04-24 15:21 | disposition home or self-care (01) ==
PROVIDERS: Emergency Provider Emergency Medicine; PCP Internal Medicine
DX: G45.9 Transient cerebral ischemic attack, unspecified (principal); I48.91 Unspecified atrial fibrillation; I10 Essential (primary) hypertension; I25.10 Atherosclerotic heart disease of native coronary artery without angina pectoris; E78.5 Hyperlipidemia, unspecified; Z95.0 Presence of cardiac pacemaker; Z95.5 Presence of coronary angioplasty implant and graft; Z79.01 Long term (current) use of anticoagulants; Z79.51 Long term (current) use of inhaled steroids; Z79.82 Long term (current) use of aspirin
CPT/HCPCS: 36415; 70450; 80053; 81001; 82948; 84484; 85025; 85610; 85730; 93005; 99284

== ENCOUNTER 2022-05-10 18:59 | Emergency (ER) | payer MEDICARE, SELFPAY ==
--- NOTE | ~2022-05-10 | CT_ITS ---
EXAMINATION: CT brain wo con DATE: 05/10/2022 19:33 INDICATION: Left arm and left face numbness. TECHNIQUE: Computed tomography (CT) of the head was performed without intravenous contrast. The mA wa s adjusted according to patient size. Iterative reconstruction technique was employed. The dose-lengt h product was 605.33 mGy-cm. COMPARISON: CT head 04/24/2022 FINDINGS: There are scattered areas of low attenuation in the cerebral white matter. There is no intr acranial hemorrhage, acute infarction, or abnormal intracranial mass lesion. The ventricles are tammie l in size. There is mild mucosal thickening in the paranasal sinuses. There are likely changes of ocu lar lens replacement surgeries. The mastoid air cells are normal. IMPRESSION: 1. Stable moderate nonspecific cerebral white matter disease, which likely represents chronic small v essel ischemic disease. Reviewed, dictated and finalized at location A. O SERVICE AGENT IMPRESSION: 1. Stable moderate nonspecific cerebral white matter disease, which likely repr esents chronic small vessel ischemic disease.
--- NOTE | 2022-05-10 19:06 | ED.NEUROSD ---
HPI - Neuro Symptoms/Deficit General Chief Complaint: Neuro Symptoms/Deficit Stated Complaint: stroke symptoms Time Seen by Provider: 05/10/22 19:02 Source: patient, EMS and RN notes reviewed Mode of arrival: ambulatory Limitations: no limitations History of Present Illness HPI Narrative: patient states that between 30 and 40 minutes prior to arrival she had an episode where she felt like her left arm was numb and went up into her tongue on the left side as well. She had a similar episode 16 days ago was seen here in the emergency room and had a full workup. She was diagnosed with a TIA that resolved. She was seen by her primary care physician and had a carotid Doppler performed at an outside hospital. They have not heard the results. she said the symptoms tonight lasted about 15 minutes then resolved. She states that she has been under lot of stress and has a history of some anxiety and thinks that might be the reason for this episode. Her symptoms completely resolved prior to arrival in the ambulance. Ambulance did a quick stroke assessment and found no abnormalities. Onset (ago): hour(s) (1) Last Observed Normal: 18:10 Timing confirmed by: family member Location: left face and left arm History of same: Yes Severity: moderate Quality: numb, tingling and other ( result prior to arrival in the ambulance lasted 15 minutes) Relieving factors: time Exacerbating factors: none Context: sudden onset On Anticoagulants: Yes ( Apixaban and aspirin) Associated symptoms: denies other symptoms Treatments Prior to Arrival: none Related Data Home Medications Medication Instructions Recorded Confirmed atorvastatin 80 mg tablet 80 mg PO HS 06/24/19 06/24/19 carvedilol 6.25 mg tablet 6.25 mg PO DAILY 06/24/19 06/24/19 ferrous sulfate 142 mg (45 mg 142 mg PO BID 06/24/19 06/24/19 iron) tablet,extended release (Slow Fe) fluocinonide 0.05 % topical cream 1 applic topical BID 06/24/19 06/24/19 fluticasone 113 mcg-salmeterol 14 1 puff inhalation BID 06/24/19 06/24/19 mcg/actuation breath activated powdr losartan 100 mg tablet 100 mg PO DAILY 06/24/19 06/24/19 spironolactone 25 mg tablet 25 mg PO DAILY 06/24/19 06/24/19 vitamin B12 500 mcg-folic acid 400 1 tablet PO DAILY 06/24/19 06/24/19 mcg tablet albuterol sulfate 90 mcg/actuation 2 puff inhalation QID PRN Wheezing 12/10/20 12/10/20 aerosol inhaler aspirin 81 mg tablet,delayed 81 mg PO DAILY 12/10/20 12/10/20 release cholecalciferol (vitamin D3) 50 50 mcg PO DAILY 12/10/20 12/10/20 mcg (2,000 unit) capsule escitalopram oxalate 10 mg tablet 10 mg PO DAILY 12/10/20 12/10/20 apixaban 5 mg tablet 5 mg PO BID 04/24/22 04/24/22 Allergies Allergy/AdvReac Type Severity Reaction Status Date / Time amlodipine Allergy Unknown Verified 01/14/22 15:45 benzonatate Allergy Unknown Verified 01/14/22 15:45 Iodinated Contrast Media Allergy Hives Verified 01/14/22 15:45 Penicillins Allergy Unknown Verified 01/14/22 15:45 Sulfa (Sulfonamide Allergy Unknown Verified 01/14/22 15:45 Antibiotics) Review of Systems Review of Systems: All systems reviewed & are unremarkable except as noted in HPI and below PMFSH Past Medical History Medical History (Updated 05/10/22 @ 20:37 by Sd Negron MD) Arrhythmia Coronary artery disease Hyperlipemia Hypertension Pacemaker TIA (transient ischemic attack) Surgical History Surgical History (Updated 05/10/22 @ 19:31 by Sd Negron MD) History of hysterectomy History of tonsillectomy Mitral valve replaced Stented coronary artery Social History Social History Smoking status: Never smoker Alcohol intake: never Substance use: never Exam Const: General: healthy appearing, no acute distress and alert Nutritional Appearance: well nourished Orientation/consciousness: patient oriented x3 Limitations: no limitations HENMT: Head: normal to inspection Ears:
[2022-05-10 19:08] VITALS: BP 158/73; PULSE 71; RESP 18; TEMP 36.8; O2SAT 99
--- NOTE | 2022-05-10 19:19 | ECG_ITS ---
Measurements Intervals [place] Rate: 61 P: ME: 0 QRS: 100 QRSD: 174 T: -7 QT: 459 QTc: 466 Interpretive Statements ELECTRONIC VENTRICULAR PACEMAKER BASELINE ARTIFACT- II, III NO FURTHER INTERPRETATION IS POSSIBLE ATYPICAL ECG COMPARED TO ECG 04/24/2022 13:24:58 NO SIGNIFICANT CHANGES Electronically Signed On 05-10-2022 20:35:34 WEIGHT LOSS PHYSICIAN by Ghulam Douglas D.O.
[2022-05-10 19:37] LABS: Basophils Absolute Auto 0.03 K/mm3 (0.00-0.10); Basophils Percent Auto 0.6 % (0.0-1.0); Eosinophils Absolute Auto 0.01 K/mm3 (0.02-0.50); Eosinophils Percent Auto 0.2 % (1.0-6.0); Hematocrit 30.6 % (35.0-42.0); Hemoglobin 10.1 g/dL (11.7-13.8); Immature Granulocyte Absolute 0.02 K/mm3 (0.00-0.00); Immature Granulocyte Percent A 0.4 % (0.0-0.0); Lymphocytes Percent Auto 15.7 % (18.0-42.0); Mean Corpuscular Hemoglobin 30.7 pg (27.0-31.0); Mean Platelet Volume 9.3 fl (9.2-11.8); Monocytes Absolute Auto 0.45 K/mm3 (0.10-0.90); Monocytes Percent Auto 8.8 % (2.0-11.0); Neutrophils Absolute Auto 3.8 K/mm3 (1.7-7.2); Neutrophils Percent Auto 74.3 % (50.0-70.0); Platelet Count Result 127 K/mm3 (150-420); Red Blood Count 3.29 M/mm3 (4.20-5.40); Red Cell Distribution Width 12.3 % (11.6-14.4); White Blood Count 5.1 K/mm3 (4.8-10.8)
[2022-05-10] MEDS: ASPIRIN 81 MG CHEWABLE TABLET 243 MG PO (19:47)
[2022-05-10 19:51] LABS: INR 1.1; Partial Thromboplastin Time 29.7 SEC (23.90-30.70); Prothrombin Time 11.9 Seconds (9.50-12.10)
[2022-05-10 19:55] LABS: Alanine Aminotransferase 58 U/L (14-59); Albumin Level 3.6 g/dL (3.4-5.0); Alkaline Phosphatase 67 U/L (46-116); Anion Gap 7 mmol/L (8-16); Aspartate Amino Transferase 55 U/L (15-37); Bilirubin,Total 0.6 mg/dL (0.00-1.00); Blood Urea Nitrogen 29 mg/dL (7-18); Calcium 8.9 mg/dL (8.5-10.1); Carbon Dioxide 29 mmol/L (21-32); Chloride 98 mmol/L (98-108); Estimated CRCL calculation 35 ml/min; Estimated Glomerular Filt Rate > 60; Glucose 100 mg/dL (70-99); Osmolality Calculated 283 mOsm/kg (285-295); Potassium 4.1 mmol/L (3.5-5.1); Sodium 134 mmol/L (136-145); Total Protein 6.4 g/dL (6.4-8.2)
[2022-05-10 20:39] VITALS: BP 145/80; PULSE 60; RESP 20; TEMP 36.7; O2SAT 100
== END 2022-05-10 20:49 | disposition home or self-care (01) ==
PROVIDERS: Emergency Provider Emergency Medicine; PCP Internal Medicine
DX: G45.9 Transient cerebral ischemic attack, unspecified (principal); I25.10 Atherosclerotic heart disease of native coronary artery without angina pectoris; E78.5 Hyperlipidemia, unspecified; I10 Essential (primary) hypertension; Z95.0 Presence of cardiac pacemaker; Z86.73 Personal history of transient ischemic attack (TIA), and cerebral infarction without residual deficits
CPT/HCPCS: 36415; 70450; 80053; 84484; 85025; 85610; 85730; 93005; 99284; A9270

== ENCOUNTER 2022-06-30 11:38 | Outpatient (CLI) | payer MEDICARE, SELFPAY | END 2022-06-30 11:39 | disposition home or self-care (01) | PROVIDERS: PCP Internal Medicine; Visit Provider Internal Medicine Nephrology | DX: D64.9 Anemia, unspecified (principal); N18.30 Chronic kidney disease, stage 3 unspecified; I12.9 Hypertensive chronic kidney disease with stage 1 through stage 4 chronic kidney disease, or unspecified chronic kidney disease | CPT/HCPCS: 99199; 81002; 82570; 84156 ==

== ENCOUNTER 2022-12-12 11:30 | Outpatient (CLI) | payer MEDICARE, SELFPAY ==
[2022-12-12 12:21] LABS: Anion Gap 5 mmol/L (8-16); Blood Urea Nitrogen 31 mg/dL (7-18); Carbon Dioxide 33 mmol/L (21-32); Chloride 101 mmol/L (98-108); Estimated Glomerular Filt Rate 53; Glucose 108 mg/dL (70-99); Osmolality Calculated 295 mOsm/kg (285-295); Potassium 4.4 mmol/L (3.5-5.1); Sodium 139 mmol/L (136-145)
== END 2022-12-12 11:31 | disposition home or self-care (01) ==
LOC: CHSLAB 11:33
PROVIDERS: PCP Internal Medicine; Visit Provider Internal Medicine
DX: N18.31 Chronic kidney disease, stage 3a (principal)
CPT/HCPCS: 36415; 80048